=== PATIENT | female | born 1960 | race African-American/Black ===

== ENCOUNTER → 2018-10-23 | Outpatient (CLI) | payer OTHER ==
--- NOTE | 2018-10-23 16:44 | KCIC ---
MRI study of the right ankle without contrast Clinical indications: Knot under lateral malleolus. Patient fell 2 months ago with swelling and pain on the lateral side. TECHNIQUE: Noncontrast MRI sequences of the right ankle were performed in all 3 planes. FINDINGS: No bone contusion or marrow infiltrative process or fracture is seen. No focal osteochondral abnormality of the dome of talus or the tibial plafond is seen. The Achilles tendon is intact. There is a partial longitudinal split tear of the peroneus brevis tendon below the level of the lateral malleolus with tenosynovitis. The flexor tendons are intact without tenosynovitis. The extensor tendons are intact without tenosynovitis. Plantar spur of the calcaneus is seen. The plantar aponeurosis is intact. No bone marrow edema or soft tissue edema is seen here. Sinus tarsi is unremarkable. Cervical and talocalcaneal ligaments are intact. The flexor and peroneal and extensor retinacular ligaments are intact. The distal interosseous ligament and anterior/posterior tibiofibular ligaments and anterior/posterior talofibular ligaments and calcaneofibular ligament and deltoid ligament and spring ligament are intact. IMPRESSION: Partial longitudinal split tear of the peroneus brevis tendon with tenosynovitis. Electronically signed by: Antonino Gonzalez MD (10/23/2018 4:39 PM) [id number]
== END | disposition home or self-care (01) ==
LOC: KCIC MRI 14:34
PROVIDERS: ATTEND Family Medicine
DX: S96.811A Strain of other specified muscles and tendons at ankle and foot level, right foot, initial encounter (principal); M77.31 Calcaneal spur, right foot; M65.871 Other synovitis and tenosynovitis, right ankle and foot; X58.XXXA Exposure to other specified factors, initial encounter; Y93.89 Activity, other specified; Y92.89 Other specified places as the place of occurrence of the external cause; Y99.8 Other external cause status
CPT/HCPCS: 73721